=== PATIENT | female | born 1955 | race Caucasian/White ===

== ENCOUNTER 2019-07-24 10:16 | Emergency (ER) | payer OTHER ==
[~2019-07-24] VITALS: Ht 167.6 cm; Wt 59.0 kg
[~2019-07-24 10:16] MED LIST: NOHOMEMEDICATIONS; NORCO 5-325 TA1 EACH PO
[2019-07-24] MEDS ORDERED: CYCLOBENZAPRINE5 MG PO (12:03)
[2019-07-24] MEDS ORDERED: MOBIC15 MG PO (12:03)
[2019-07-24 12:31] VITALS: BP 118/82
== END 2019-07-24 12:31 | disposition home or self-care (01) ==
LOC: ER 10:16
DX: S76.011A Strain of muscle, fascia and tendon of right hip, initial encounter (principal); X58.XXXA Exposure to other specified factors, initial encounter; Y92.89 Other specified places as the place of occurrence of the external cause; Y93.89 Activity, other specified; Y99.8 Other external cause status